=== PATIENT | female | born 1955 | race Caucasian/White ===

== ENCOUNTER → 2017-05-27 | Outpatient (CLI) | payer BC ==
[~2017-05-27] MED LIST: LEVO150T72 PO; SER50 PO
--- NOTE | 2017-05-27 13:12 | RADIOLOGY IMAGING REPORT ---
FAC[place] [facility] [place]IENT NAME: Lauryn Jurado : 1955 MR: [id number] V: [id number] EXAM DATE: ORDERING PHYSICIAN: YOLANDA CARDENAS TECHNOLOGIST: Location: [facility] - [place] Patient: Lauryn Jurado : 1955 Visit/Account:[id number] Date of Sevice: 05/27/2017 Lumbar spine with standing and flexion/extension views, four views. HISTORY: Low back pain. COMPARISON: None. Mild loss of disc height is present at L2-3, L3-4, L4-5, and L5-S1. The L5 vertebral body is subluxe d anteriorly with respect to S1 by 3 mm. This does not change significantly during flexion and exten joo [place] adult the L4-5 and L5-S1 facets are mildly hypertrophic bilaterally. The bony spinal canal diameter is normal. The L5 pars regions are obscured. The other lumbar discs are normal in height. The sacroiliac joints are unremarkable. IMPRESSION: Mild multilevel degenerative disc disease. Grade 1 L5-S1 spondylolisthesis. Report Dictated By: Drake Wooten MD at 05/27/2017 1:04 PM Report E-Signed By: Drake Wooten MD at 05/27/2017 1:08 PM WSN:[id number]
== END ==
LOC: RAD 11:09
PROVIDERS: ATTEND Neurological Surgery
DX: M47.897 Other spondylosis, lumbosacral region (principal)
CPT/HCPCS: 72120